=== PATIENT | female | born 1995 | race Two or more races ===

== ENCOUNTER 2019-03-05 20:26 | Emergency (ER) | payer MEDICAID ==
[~2019-03-05] VITALS: Ht 154.9 cm; Wt 59.0 kg
[2019-03-05 21:02] VITALS: BP 143/92
[2019-03-06] MEDS ORDERED: LORazepam 0.5 MG TAB PO ONE (03:15)
== END 2019-03-06 03:59 | disposition home or self-care (01) ==
LOC: ER 20:33
DX: F41.9 Anxiety disorder, unspecified (principal)
CPT/HCPCS: 71045; 93005